=== PATIENT | male | born 1955 | race Caucasian/White ===

== ENCOUNTER 2019-04-29 05:25 | Inpatient (IN) ==
[2019-04-29] MEDS ORDERED: FAMOTIDINE 20MG/5ML IV PUSH IV STA (05:42)
[2019-04-29] MEDS ORDERED: SODIUM CHLORIDE 0.9% 1000ML 1,000 ML IV SCH (05:45)
[2019-04-29 06:05] LABS: Basophils # (auto) 0.03 K/uL (0-0.2); Basophils % (auto) 0.3 %; Eosinophils # (auto) 0.17 K/uL (0-0.5); Eosinophils % (auto) 1.7 %; Hematocrit (blood only) 42.6 % (42-52); Hemoglobin 13.9 g/dL (14.0-18.0); Immature Granulocytes # (auto) 0.03 K/uL (0.00-0.02); Immature Granulocytes % (auto) 0.3 %; Lymphocytes # (auto) 1.29 K/uL (1.2-3.4); Lymphocytes % (auto) 12.9 %; Mean Corpuscular Hemoglobin 26.7 pg (25-34); Mean Corpuscular Hgb Conc 32.6 g/dL (32-36); Mean Corpuscular Volume 81.8 fL (80-100); Mean Platelet Volume 9.8 fL (7.4-10.4); Monocytes # (auto) 1.19 K/uL (0.11-0.59); Monocytes % (auto) 11.9 %; Neutrophils # (auto) 7.29 K/uL (1.4-6.5); Neutrophils % (auto) 72.9 %; Platelet Count 228 K/uL (130-400); RDW Coefficient of Variation 15.7 % (11.5-14.5); RDW Standard Deviation 47.4 fL (36.4-46.3); Red Blood Count 5.21 M/uL (4.7-6.1)
[2019-04-29 06:14] LABS: Prothrombin Time 10.6 Seconds (9.0-12.0)
[2019-04-29 06:28] LABS: Alanine Aminotransferase 19 U/L (12-78); Albumin Level 3.4 gm/dl (3.4-5.0); Aspartate Aminotransferase 13 U/L (15-37); Blood Urea Nitrogen 18 mg/dl (7-18); Calcium 8.7 mg/dl (8.5-10.1); Carbon Dioxide 26 mmol/L (21-32); Chloride 109 mmol/L (98-107); Creatinine Clr Calc Pharmacy 118.9 ml/min; Est GFR (African American) 110.4; Est GFR (Non-African American) 95.2; Glucose 131 mg/dl (70-99); Lipase 105 U/L (73-393); Potassium 3.8 mmol/L (3.5-5.1); Sodium 140 mmol/L (136-145)
--- NOTE | 2019-04-29 06:28 | Emergency Department Note ---
History of Present Illness General Chief complaint: Rectal Bleed Stated complaint: RECTAL BLEEDING Time Seen by Provider: 04/29/19 05:34 Source: patient Mode of arrival: ambulatory Limitations: no limitations History of Present Illness Provider complaint: gi bleeding Onset (ago): day(s) 3 Location: abdomen Radiation: non-radiation Severity: moderate Pain Consistency: + colicky Quality: + aching and + dull Relieved By: + none Exacerbated By: + none Associated symptoms: + nausea/vomiting and + other (bloody BM) Treatments prior to arrival: none This is a 64-year-old male who presents tonight due to increased abdominal pain and recurrent episodes of bloody diarrhea. Patient was seen here yesterday and had labs and imaging performed. Patient was started on Augmentin and advised to follow-up closely with GI as an outpatient for a colonoscopy. Patient states his last colonoscopy was 6 years ago and was reported to him as normal. No prior GI history including gastritis, peptic ulcer disease, IBS, Crohn's disease, or ulcerative colitis. Patient states he began to not feel well Thursday night and Thursday, Thursday evening noticed some bright red blood with wiping which he attributed to hemorrhoids. States he called his PCP on Thursday who agreed that it was most likely hemorrhoidal bleeding. Patient states yesterday he had increased blood with a bowel movement that was mixed in with the stool and water itself and presented to the emergency room. Patient did have some upper abdominal pain intermittently over the last several days accompanying this. Patient states he felt reassured after his evaluation here, and went home. He was able to lay down and rest, and then awoke to a dull, aching upper abdominal pain again, and an episode of a large bloody diarrhea. Patient states there is minimal stool in the toilet bowl. Patient states the stool was burgundy in color. No clots were noted. Patient denies any accompanying dizziness, shortness of breath, chest pain, fevers or chills. Patient states he does feel bloated. Patient states he is still passing gas. Patient states he takes a baby aspirin daily, no other blood thinners. Home Medications Home Medications Medication Instructions Recorded Confirmed Type amlodipine [Norvasc] 5 mg PO DAILY 04/28/19 04/29/19 History amoxicillin-pot clavulanate 1 tab PO BID #20 tab 04/28/19 04/29/19 Rx [Augmentin] aspirin [Aspir-81] 81 mg PO DAILY 04/28/19 04/29/19 History cholecalciferol (vitamin D3) 5,000 unit PO DAILY 04/28/19 04/29/19 History [Vitamin D3] garlic 1 tab PO DAILY 04/28/19 04/29/19 History kirclewd-gvqis-vnl4-C-bandar-bor 1 tab PO BID 04/28/19 04/29/19 History [Jhlchlkqtrb-Udiwg-FRI Complex] multivitamin 1 tab PO DAILY 04/28/19 04/29/19 History omega 4-fwk-mvl-fish oil [[place]-3] 1 cap PO DAILY 04/28/19 04/29/19 History Cholestoff Med 2 tabs PO DIRECTED 04/29/19 04/29/19 History Allergies Allergy/AdvReac Type Severity Reaction Status Date / Time No Known Allergies Allergy Unverified 04/29/19 05:49 Past Med/Surg History Medical History Acute lower GI bleeding (Acute) Diverticulosis (Acute) Social History (Updated 04/29/19 @ 06:26 by Beth Flores DO) Preferred Language: Argentine Communication Ability: Effective Visual Impairment: No Limitations Hearing Ability: Normal Property Disposal Manager Required: No Beliefs That Will Affect Care: None Current Living Situation: Alone Other Information That Helps Us Care for You: No Feels Safe at Home: Yes Safety Concerns: Feels Safe At This Time Smoking Status: Current every day smoker Tobacco Type: cigarettes ; Cigarettes Per Day: 10-15 ; Do You Dip or Chew Tobacco: No ; Second Hand Exposure: No ; Tobacco Cessation Education Requested by Patient: No Hx Alcohol Use: Yes Alcohol type: beer and hard liquor Hx Substance Use: No Review of Systems See HPI for pertinent positives & negatives. and A total of 10 systems reviewed and were otherwise negative Physical Exam Vital Signs Vital Signs - 24 hr 04/29/19 05:28 Temperature 36.8 C Temperature Source Oral Pulse Rate 89 Respiratory Rate 18 Blood Pressure 139/77 Blood Pressure Mean 97 Pulse Oximetry 98 Sepsis Recent Fever Within 48 Hours No Sepsis New/Unexplained Change in Mental Status No Sepsis Action Taken by Nursing No Action Required GENERAL: alert, well appearing, well nourished, no distress, non-toxic EYE EXAM: normal conjunctiva, PERRL and EOM's grossly intact OROPHARYNX: no exudate, no erythema, lips, buccal mucosa, and tongue normal and mucous membranes are moist NECK: supple, no nuchal rigidity, no adenopathy, non-tender LUNGS: Clear to auscultation. Normal chest wall mechanics, no w/r/r HEART: no murmurs, S1 normal and S2 normal ABDOMEN: abdomen soft, non-tender, normo-active bowel sounds, no masses, no re bound or guarding, abdominal distention, dull to percussion BACK: Back is symmetrical on inspection and there is no deformity, no midline tenderness, no CVA tenderness. SKIN: no rashes and no bruising, no petechiae UPPER EXTREMITIES: upper extremities are grossly normal. FROM, nml pulses b/l. LOWER EXTREMITIES: No pitting edema. FROM, nml pulses b/l. NEURO EXAM: Normal sensorium, cranial nerves II-XII grossly intact, normal speech, no gross weakness of arms, no gross weakness of legs. Gross sensation intact. Course Course 0615: Pt still having slight upper abdominal pain. No recurrent diarrhea yet. 0706: Pt with recurrent bloody BM here. 0725: Discuss[place] with Dr. Santana, [facility] [place] for additional evaluation. Administered Medications Amlodipine Besylate (Norvasc) 5 mg PO DAILY [facility] Stop: 05/29/19 08:59 Last Admin: 04/30/19 08:24 Dose: 5 mg Documented by: [id number] Admin: 04/29/19 12:17 Dose: 5 mg Documented by: [id number] Piperacillin Sod/Tazobactam (Sod 3.375 gm/ Dextrose) 115 mls @ 28.75 mls/hr IV Q8H [facility]; Protocol Stop: 05/10/19 17:59 Last Infusion: 04/30/19 19:14 Dose: 28.8 mls/hr Documented by: [id number] Infusion: 04/30/19 18:34 Dose: 0 mls/hr Documented by: [id number] Admin: 04/30/19 18:25 Dose: 28.8 mls/hr Documented by: [id number] Miscellaneous (Remove Nicoderm Patch) 1 ea N/A DAILY@0859 [facility] Stop: 05/30/19 08:58 Last Admin: 04/30/19 08:24 Dose: 1 ea Documented by: [id number] Nicotine (Nicoderm Cq) 14 mg TD QAM PRN PRN Reason: smoking Stop: 05/29/19 09:40 Last Admin: 04/30/19 18:24 Dose: 14 mg Documented by: [id number] Admin: 04/29/19 17:18 Dose: 14 mg Documented by: [id number] Pantoprazole Sodium (Protonix) 40 mg PO BID SARY Stop: 05/30/19 12:44 Last Admin: 04/30/19 13:26 Dose: 40 mg Documented by: [id number] Discontinued Medications Amoxicillin/Clavulanate Potassium (Augmentin 875mg) 1 tab PO BID SARY Stop: 05/09/19 09:59 Last Admin: 04/30/19 08:24 Dose: 1 tab Documented by: [id number] Admin: 04/29/19 20:21 Dose: 1 tab Documented by: [id number] Admin: 04/29/19 10:39 Dose: 1 tab Documented by: [id number] Bisacodyl (Dulcolax) 5 mg PO NOW ONE Stop: 04/30/19 03:06 Last Admin: 04/30/19 03:14 Dose: 5 mg Documented by: [id number] Famotidine (Pepcid 20mg Iv Push) 20 mg IV ONE STA Stop: 04/29/19 05:43 Last Admin: 04/29/19 06:01 Dose: 20 mg Documented by: [id number] Sodium Chloride (Nss 1000ml) 1,000 mls @ 80 mls/hr IV .[id number] SARY Stop: 05/29/19 05:44 Last Infusion: 04/29/19 09:05 Dose: 0 mls/hr Documented by: [id number] Infusion: 04/29/19 08:35 Dose: 80 mls/hr Documented by: [id number] Admin: 04/29/19 06:01 Dose: 80 mls/hr Documented by: [id number] Acetaminophen (Ofirmev) 1,000 mg in 100 mls @ 400 mls/hr IV NOW STA Stop: 04/29/19 06:51 Last Infusion: 04/29/19 06:57 Dose: 0 mls/hr Documented by: [id number] Admin: 04/29/19 06:41 Dose: 400 mls/hr Documented by: [id number] Piperacillin Sod/Tazobactam (Sod 3.375 gm/ Dextrose) 115 mls @ 230 mls/hr IV 1300 ONE; Protocol Stop: 04/30/19 13:29 Last Infusion: 04/30/19 13:27 Dose: 0 mls/hr Documented by: [id number] Admin: 04/30/19 12:57 Dose: 230 mls/hr Documented by: [id number] Medical Decision Making Differential Diagnosis Differential diagnosis includes etiologies such as diverticulosis, AVM, coagulopathy, colitis, inflammatory bowel disease, malignancy, Rina-Jovel tear, esophagitis, peptic ulcer disease, variceal bleed, gastritis, epistaxis, fissure, hemorrhoids, as well as others were entertained. Medical Records Attestation: I reviewed the patient's medical records. Home Medications Current Medication List: was personally reviewed by me Laboratory Data Attestation: I reviewed the patient's lab results. Result diagrams: 04/30/19 18:09 04/30/19 06:00 Lab Results 04/29/19 04/29/19 04/29/19 Range/Units 05:56 05:56 05:56 WBC 10.00 (4.8-10.8) K/uL RBC 5.21 (4.7-6.1) M/uL Hgb 13.9 L (14.0-18.0) g/dL Hct 42.6 (42-52) % MCV 81.8 (80-100) fL MCH 26.7 (25-34) pg MCHC 32.6 (32-36) g/dL RDW Std Deviation 47.4 H (36.4-46.3) fL RDW Coeff of Brent 15.7 H (11.5-14.5) % Plt Count 228 (130-400) K/uL MPV 9.8 (7.4-10.4) fL Immature Gran % (Auto) 0.3 % Neut % (Auto) 72.9 % Lymph % (Auto) 12.9 % Morrow % (Auto) 11.9 % Eos % (Auto) 1.7 % Baso % (Auto) 0.3 % Immature Gran # (Auto) 0.03 H (0.00-0.02) K/uL Neut # (Auto) 7.29 H (1.4-6.5) K/uL Lymph # (Auto) 1.29 (1.2-3.4) K/uL Morrow # (Auto) 1.19 H (0.11-0.59) K/uL Eos # (Auto) 0.17 (0-0.5) K/uL Baso # (Auto) 0.03 (0-0.2) K/uL PT 10.6 (9.0-12.0) Seconds INR 1.0 (0.9-1.1) Sodium 140 (136-145) mmol/L Potassium 3.8 (3.5-5.1) mmol/L Chloride 109 H (98-107) mmol/L Carbon Dioxide 26 (21-32) mmol/L Anion Gap 5.0 (3-11) BUN 18 (7-18) mg/dl Creatinine 0.77 (0.6-1.4) mg/dl Est Cr Clr Drug Dosing 118.9 ml/min Est GFR ( Amer) 110.4 Est GFR (Non-Af Amer) 95.2 BUN/Creatinine Ratio 23.0 H (10-20) Glucose 131 H (70-99) mg/dl Lactate (0.4-2.0) mmol/L Calcium 8.7 (8.5-10.1) mg/dl Total Bilirubin 0.6 (0.2-1) mg/dl AST 13 L (15-37) U/L ALT 19 (12-78) U/L Alkaline Phosphatase 67 (45-117) U/L Troponin I < 0.015 (0-0.045) ng/ml Total Protein 8.2 (6.4-8.2) gm/dl Albumin 3.4 (3.4-5.0) gm/dl Globulin 4.8 H (2.5-4.0) gm/dl Albumin/Globulin Ratio 0.7 L (0.9-2) Lipase 105 (73-393) U/L Hepatitis C Ab Screen (Neg) 04/29/19 04/29/19 Range/Units 05:56 05:58 WBC (4.8-10.8) K/uL RBC (4.7-6.1) M/uL Hgb (14.0-18.0) g/dL Hct (42-52) % MCV (80-100) fL MCH (25-34) pg MCHC (32-36) g/dL RDW Std Deviation (36.4-46.3) fL RDW Coeff of Brent (11.5-14.5) % Plt Count (130-400) K/uL MPV (7.4-10.4) fL Immature Gran % (Auto) % Neut % (Auto) % Lymph % (Auto) % Morrow % (Auto) % Eos % (Auto) % Baso % (Auto) % Immature Gran # (Auto) (0.00-0.02) K/uL Neut # (Auto) (1.4-6.5) K/uL Lymph # (Auto) (1.2-3.4) K/uL Morrow # (Auto) (0.11-0.59) K/uL Eos # (Auto) (0-0.5) K/uL Baso # (Auto) (0-0.2) K/uL PT (9.0-12.0) Seconds INR (0.9-1.1) Sodium (136-145) mmol/L Potassium (3.5-5.1) mmol/L Chloride (98-107) mmol/L Carbon Dioxide (21-32) mmol/L Anion Gap (3-11) BUN (7-18) mg/dl Creatinine (0.6-1.4) mg/dl Est Cr Clr Drug Dosing ml/min Est GFR ( Amer) Est GFR (Non-Af Amer) BUN/Creatinine Ratio (10-20) Glucose (70-99) mg/dl Lactate 0.8 (0.4-2.0) mmol/L Calcium (8.5-10.1) mg/dl Total Bilirubin (0.2-1) mg/dl AST (15-37) U/L ALT (12-78) U/L Alkaline Phosphatase (45-117) U/L Troponin I (0-0.045) ng/ml Total Protein (6.4-8.2) gm/dl Albumin (3.4-5.0) gm/dl Globulin (2.5-4.0) gm/dl Albumin/Globulin Ratio (0.9-2) Lipase (73-393) U/L Hepatitis C Ab Screen Neg (Neg) Blood Pressure Blood Pressure Findings: Elevated blood pressure Blood Pressure Disposition: further management by hospitalist MDM Narrative Pt here well appearing despite complaints. VS stable throughout. H/H stable. I did not feel pt warranted repeat CT given one performed within 24 hrs. Given recurrent/worsening bleeding and abdominal discomfort along with CT findings from yesterday, I felt pt would benefit from more urgent GI evaluation and close monitoring. Pt aware of all results and in agreement with plan. Case discussed with hospitalist for additional mgmt. Pt did have recurrent bloody BM here and this was sent to the lab for formal hemacult testing and culture. I do not suspect ischemic colitis, infectious diarrhea or colitis, sbo, perf. I feel more like lower GI bleed and do not suspect brisk upper GI bleed. Impression & Plan Acute GI bleeding, Diverticulosis, Abdominal pain, Diarrhea Discharge Plan Visit Data *Final* Discharge Date/Time: 04/29/19 08:51 Chief Complaint: Rectal Bleed Stated Complaint: RECTAL BLEEDING ED Provider: Beth Flores Discharge Problem: Acute GI bleeding, Diverticulosis, Abdominal pain, Diarrhea Patient Disposition: Admitted As Inpatient Condition: Good Discharge Instructions Interventions: ED Discharge Assessment Last Done: 04/29/19 08:51 Discharge Problem: Abdominal pain Qualifiers: Abdominal location: left upper quadrant Qualified Code(s): R10.12 - Left upper quadrant pain Diarrhea Qualifiers: Diarrhea type: unspecified type Qualified Code(s): R19.7 - Diarrhea, unspecified
[2019-04-29 06:33] LABS: Albumin Globulin Ratio 0.7 (0.9-2); Alkaline Phosphatase 67 U/L (45-117); Bilirubin,Total 0.6 mg/dl (0.2-1); Globulin 4.8 gm/dl (2.5-4.0); Total Protein 8.2 gm/dl (6.4-8.2); Troponin I < 0.015 ng/ml (0-0.045)
[2019-04-29] MEDS ORDERED: ACETAMINOPHEN 1,000 MG/100 ML VIAL IV STA (06:37)
[2019-04-29] MEDS ORDERED: ACETAMINOPHEN 325 MG TAB PO PRN (08:03)
[2019-04-29] MEDS ORDERED: ONDANSETRON INJ 2 MG/ML 2 ML VIAL IV PRN (08:03)
--- NOTE | 2019-04-29 08:03 | History & Physical Report ---
Date of Service April 29, 2019 Assessment & Plan (1) Acute GI bleeding: - Admit to med surg with tele - NPO for now - GI consult for colonoscopy- pt had colonoscopy in 2013, reports all findings were normal at that time, thinks that [facility] was [facility], he has followed with Dr. Sharif as his PCP believes he referred him at that time there. [facility] or through [facility]. - Hgb stable at 13 currently, H&H q6H today, then with am labs tomorrow - Continue Augmentin which was started yesterday, patient has taken 1 dose so far for possible diverticulitis - CT ABD reviewed from 04/28/2019 showing extensive colonic diverticulosis without definitive evidence of acute diverticulitis. Mild wall thickening within the proximal to mid sigmoid colon without significant pericolonic inflammation may represent chronic hypertrophy of the muscularis propria secondary to diverticular disease A focal area of mild luminal narrowing of the proximal sigmoid which may be secondary to partial distention. Correlation with a nonemergent colonoscopy however is recommended to exclude an underlying mucosal lesion. Moderate fecal retention with multiple stool-filled loops of ileum suggestive of decreased small bowel transit. No bowel obstruction, pneumatosis or pneumoperitoneum. Ectasia of the distal infrarenal abdominal aorta, 2.8 x 2.4 cm. (2) HTN (hypertension): - Continue amlodipine for now, BP well controlled. If changes in hgb or BP consider holding - Hold ASA in setting of GI bleed (3) Alcohol use: -Patient admits to heavy alcohol consumption 2-3 times per week, 10 beers and a few shots of liquor at least twice per week, as well as drinking beers while doing activities like yard work -Cessation was encouraged -Last drink was on Thursday, monitor for any signs of withdrawal, patient denies any feelings of sweats, chills, shakes. (4) Tobacco dependence: -Smokes 1/2-1 PPD routinely, cessation was encouraged to bedside -Nicotine patch ordered as needed (5) DVT prophylaxis: -Teds, no chemical DVT in the setting of GI bleed CODE STATUS full code Disposition: Patient from home, likely to remain in the hospital x1 to 2 days for stabilization, GI evaluation, possible colonoscopy, monitoring of hemoglobin. History of Present Illness Primary Care Provider: Dalton Sharif MD This is a 64 yo M with PMhx of HTN and GI bleed who presents with recent onset of bloody bowel movements. Patient notes that last Thursday he developed an left upper quadrant abdominal pain at approximately midnight which then turned into a dull achy pain and eventually subsided on Thursday. After that he noticed bowel movements with small amount of blood on toilet paper. He felt that he was somewhat constipated on Thursday, strained during bowel movement, and then noticed more blood on toilet paper. He has had intermittent episodes of constipation in the past. After discussion with his PCP it was thought that he was having hemorrhoids. On he had a large bowel movement with bright red blood, with some in the toilet bowl and therefore called his PCP, he was referred to the ER, where he presented yesterday and was found that he had extensive diverticulosis on CT scan and was started on Augmentin as well as a stool softener for possible diverticulitis. The patient went home and then continue to have increased large bloody bowel movements, bright red, + clots, increased frequency of BMs, and therefore re-presented back to the ER early this morning. He has had multiple large bloody BMs since being here in the ER. He denies any lightheadedness or dizziness or further abdominal pain, no nausea or vomiting. He last took his amlodipine at 6-7pm last night, but has not taken any other of his medications. Other past medical history includes chronic tobacco use, smokes 1/2-1 PPD x 40+ years, patient also admits to drinking alcohol 2-3 times per week, 10 beers and "a few shots". He denies heavy use of NSAIDs but has used ibuprofen routinely for back pain in the past; last time he took ibuprofen was 400 mg about 10 days ago. Allergies Allergy/AdvReac Type Severity Reaction Status Date / Time No Known Allergies Allergy Unverified 04/29/19 05:49 Home Medications Home Medications Medication Instructions Recorded Confirmed Type amlodipine [Norvasc] 5 mg PO DAILY 04/28/19 04/29/19 History amoxicillin-pot clavulanate 1 tab PO BID #20 tab 04/28/19 04/29/19 Rx [Augmentin] aspirin [Aspir-81] 81 mg PO DAILY 04/28/19 04/29/19 History cholecalciferol (vitamin D3) 5,000 unit PO DAILY 04/28/19 04/29/19 History [Vitamin D3] garlic 1 tab PO DAILY 04/28/19 04/29/19 History ehspwcbh-pxgkk-hvk1-C-bandar-bor 1 tab PO BID 04/28/19 04/29/19 History [Azkenxuiedk-Vozca-UOS Complex] multivitamin 1 tab PO DAILY 04/28/19 04/29/19 History omega 9-txz-ctd-fish oil [[place]-3] 1 cap PO DAILY 04/28/19 04/29/19 History Cholestoff Med 2 tabs PO DIRECTED 04/29/19 04/29/19 History Past Med/Surg History Medical History Acute lower GI bleeding (Acute) Diverticulosis (Acute) Social History (Updated 04/29/19 @ 06:26 by Beth Flores DO) Preferred Language: Bol[place]ian Communication Ability: Effective Visual Impairment: No Limitations Hearing Ability: Normal Store Detective Required: No Beliefs That Will Affect Care: None Current Living Situation: Alone Other Information That Helps Us Care for You: No Feels Safe at Home: Yes Safety Concerns: Feels Safe At This Time Smoking Status: Current every day smoker Tobacco Type: cigarettes ; Cigarettes Per Day: 10-15 ; Do You Dip or Chew Tobacco: No ; Second Hand Exposure: No ; Tobacco Cessation Education Requested by Patient: No Hx Alcohol Use: Yes Alcohol type: beer and hard liquor Hx Substance Use: No Review of Systems Review of Systems: Constitutional: No fever, sweats or chills Eyes: No diplopia, no worsening or blurred vision ENT: normal hearing, no trouble swallowing Respiratory: No cough, sputum, dyspnea at rest or on exertion Cardiovascular: No chest pain, tightness or palpitations Abdomen: As per HPI Musculoskeletal: No joint pain, calf pain, swelling Neurologic: No weakness, numbness/tingling, or balance problems Psychiatric: No anxiety or depression Skin: No rash or itch Physical Exam Physical Exam: General: awake, alert, no apparent distress, yellowing of facial hair around the mouth from smoking Head: Normocephalic, atraumatic ENT: PERRL, EOMI, no pharyngeal exudate, mucous membranes moist Chest: Clear to auscultation, on room air, no adventitious breath sounds Cardiac: Regular rate and rhythm, no murmur, no JVD, normal peripheral pulses, good capillary refill Abdominal: NABS x 4 quadrants, soft, nondistended, nontender to palpation, no rebound, guarding Extremities: Normal inspection, no peripheral edema or erythema, calfs nontender to palpation Psych: Normal mood and affect Neuro: AAO x 3, strength intact bilaterally and rated 5/5, no motor deficits, speech is clear, no peripheral sensory deficits Skin: no rash or erythema Results & Data Vital Signs (Past 12 Hours) Vital Signs Temp Pulse Resp BP Pulse Ox 04/29/19 05:28 36.8 C 89 18 139/77 98 Supervising Physician Co-Signing Physician Notes Patient seen and examined with Nissa VALENTINO. I agree with her exam findings, review of systems, assessment and plan. I personally reviewed the lab work and imaging as well. patient feeling well, actually feels better after he had the large BM this morning he says that the bloody BM was NOT painful he has not had fever or chills prior to some bleeding yesterday, he had never experienced significant GI bleeding he had a colonoscopy 6 years ago that he believes was normal - Acute GI bleed, likely lower GI bleed given the findings on CT of colon thickening and the painless, bright red blood would think diverticular bleed or colitis? will allow clear liquids today, no red dye, would not anticipate urgent colonoscopy as colon would likely be bloody, difficult to determine source consult GI for further recommendations BP is stable, Hb is stable at 13.9 repeat labs in the morning PG Care Time/CCT Total # of Minutes Spent Total Time Spent with Patient: Total time spent is greater than 50% in coordination of care (as documented) at patient's floor/unit and/or counseling patient: Coding Level of Care Code 66550 Initial Inpt Care Lvl 3 Diagnoses Acute GI bleeding K92.2 HTN (hypertension) I10 Alcohol use Z72.89 Tobacco dependence F17.200 DVT prophylaxis Z29.9
--- NOTE | 2019-04-29 09:56 | Gastrointestinal Consultation ---
Date of Consultation April 29, 2019 Assessment & Plan (1) Acute GI bleedin64 year old male with history of HTN admitted through the ED w/ abdominal cramping, constipation now w/ rectal bleeding, maroon colored and bright red w/ associated clots. He is hemodynamically stable w/ BP 164/89 w/ pulse 65. He is afebrile without leukocytosis. HGB stable overnight at 13.9 w/o BUN elevation. CT w/ diverticulosis, mild wall thickening of the sigmoid colon w/o pericolonic inflammation which could be secondary to chronic diverticular disease w/ associated luminal narrowing of the sigmoid colon. Colonoscopy in 2013 w/ diverticular disease otherwise negative. DDX: ischemic colitis, diverticular bleed, hemorrhoidal bleed, infectious colitis - Check stool culture, C.diff - NPO for bowel rest - Agree w/ IVF for hydration - Can convert PO augmentin to IV coverage if stool studies are negative - Analgesia PRN - Trend H&H - Monitor and document all GI output - Transfusion PRN per facility guidelines per primary service - No current indication for inpatient colonoscopy but this should be arrange if bleeding persists during his admission. If not completed in house he will need an OP colonoscopy in the next 4-6 weeks Present on Admission?: Yes Supervising Physician Co-Signing Physician Notes I discussed this case with Dr. Santana extensively as well as with our midlevel provider Makeda Milligan. Given the healthcare climates right now, suggestions of virtual consults are encouraged given exposure risks. pat adm with pain followed by painless rectal bleeding without hemodynamic compromise. Hb stable. Diff DX: Ischemic colitis Diverticular disease (know jolley diverticolosis) infectious etiology. Recs: Hb daily Supportive care If has evidence of hemodynamic changes then call GI operations intelligence superintendent Stool Cx IV abx x 24 hrs Plan for outpt colon in 2-3 wks barring normal stool cx and assymptomatic period. History of Present Illness Reason for Consultation: abd pain, rectal bleeding Requesting Physician: Max Attending Physician: Angel Santana DO History of Present Illness In efforts to reduce [id number] interaction initial consultation is a chart review, I will discuss the case with my attending, Dr. Jarvis. 64 year old male with past medical history significant for HTN, ongoing tobacco and alcohol use/abuse who was admitted through the ED for evaluation of abdominal cramping, rectal bleeding. GI was asked to evaluate for his symptoms. This chart was reviewed. Per record review, pt noted onset of abdominal pain Thursday/Thursday which was cramping in nature. Left sided pain. Intermittent. Associated w/ constipation and use of stool softener/laxative. W/ his bowel movement he noted rectal bleeding. Bright red to start. Progressed to maroon colored w/ some clots. Initially saw PCP who was concerned about hemorrhoidal bleeding but later presented to the ED for evaluation as this persisted. Labs at that time were unremarkable, CT showed evidence of chronic diverticular disease but no acute findings. He was discharged from ED home on PO Augmentin but later returned with persistent symptoms and subsequently admitted He is hemodynamically stable w/ BP 164/89 w/ pulse 65. He is afebrile without leukocytosis. His HGB this AM is 13.9. Yesterday value was 14. There is no BUN elevation. CTAP w/ diverticulosis, mild wall thickening of the sigmoid colon w/o pericolonic inflammation which could be secondary to chronic diverticular disease w/ associated luminal narrowing of the sigmoid colon CTAP 2020: Extensive colonic diverticulosis without definite evidence of acute diverticulitis. Mild wall thickening within the proximal to mid sigmoid colon without significant pericolonic inflammation may represent chronic hypertrophy of the muscularis propria secondary to diverticular disease. Additionally, there is a focal area of mild luminal narrowing of the proximal sigmoid which may be secondary to partial distention. Correlation with a nonemergent colonoscopy however is recommended to exclude an underlying mucosal lesion. Moderate fecal retention with multiple stool-filled loops of ileum suggestive of decreased small bowel transit. No bowel obstruction, pneumatosis or pneumoperitoneum. Ectasia of the distal infrarenal abdominal aorta, 2.8 x 2.4 cm. EGD: none Colonoscopy 2012 w/ Dr. Armas: The examined portion of the ileum was normal. Jolley-colonic diverticulosis, most pronounced in the left colon. The distal rectum and anal verge are normal on retroflexion view Allergies Allergy/AdvReac Type Severity Reaction Status Date / Time No Known Allergies Allergy Unverified 04/29/19 05:49 Home Medications Home Medications Medication Instructions Recorded Confirmed Type amlodipine [Norvasc] 5 mg PO DAILY 04/28/19 04/29/19 History amoxicillin-pot clavulanate 1 tab PO BID #20 tab 04/28/19 04/29/19 Rx [Augmentin] aspirin [Aspir-81] 81 mg PO DAILY 04/28/19 04/29/19 History cholecalciferol (vitamin D3) 5,000 unit PO DAILY 04/28/19 04/29/19 History [Vitamin D3] garlic 1 tab PO DAILY 04/28/19 04/29/19 History kmfberms-omftz-nug8-C-bandar-bor 1 tab PO BID 04/28/19 04/29/19 History [Pyvkrkxsxil-Ygkuw-HEB Complex] multivitamin 1 tab PO DAILY 04/28/19 04/29/19 History omega 5-izi-qlm-fish oil [[place]-3] 1 cap PO DAILY 04/28/19 04/29/19 History Cholestoff Med 2 tabs PO DIRECTED 04/29/19 04/29/19 History Patient History Medical History Acute lower GI bleeding (Acute) Diverticulosis (Acute) Social History (Updated 04/29/19 @ 06:26 by Beth Flores DO) Preferred Language: Hebrew Communication Ability: Effective Visual Impairment: No Limitations Hearing Ability: Normal Creosoting Engineer Required: No Beliefs That Will Affect Care: None Current Living Situation: Alone Other Information That Helps Us Care for You: No Feels Safe at Home: Yes Safety Concerns: Feels Safe At This Time Smoking Status: Current every day smoker Tobacco Type: cigarettes ; Cigarettes Per Day: 10-15 ; Do You Dip or Chew Tobacco: No ; Second Hand Exposure: No ; Tobacco Cessation Education Requested by Patient: No Hx Alcohol Use: Yes Alcohol type: beer and hard liquor Hx Substance Use: No Results & Data ([facility]) Vital Signs (Past 12 Hours) Vital Signs Temp Pulse Pulse Resp BP BP Pulse Ox 04/29/19 09:45 65 04/29/19 09:41 36.7 C 62 20 164/89 H 99 04/29/19 08:51 67 18 135/79 98 04/29/19 07:30 61 18 131/87 98 04/29/19 05:28 36.8 C 89 18 139/77 98 Laboratory Results 04/29/19 04/29/19 04/29/19 Range/Units 05:58 05:56 05:56 WBC (4.8-10.8) K/uL RBC (4.7-6.1) M/uL Hgb (14.0-18.0) g/dL Hct (42-52) % MCV (80-100) fL MCH (25-34) pg MCHC (32-36) g/dL RDW Std Deviation (36.4-46.3) fL RDW Coeff of Brent (11.5-14.5) % Plt Count (130-400) K/uL MPV (7.4-10.4) fL Immature Gran % (Auto) % Neut % (Auto) % Lymph % (Auto) % [place] % (Auto) % Eos % (Auto) % Baso % (Auto) % Immature Gran # (Auto) (0.00-0.02) K/uL Neut # (Auto) (1.4-6.5) K/uL Lymph # (Auto) (1.2-3.4) K/uL [place] # (Auto) (0.11-0.59) K/uL Eos # (Auto) (0-0.5) K/uL Baso # (Auto) (0-0.2) K/uL PT (9.0-12.0) Seconds INR (0.9-1.1) Sodium 140 (136-145) mmol/L Potassium 3.8 (3.5-5.1) mmol/L Chloride 109 H (98-107) mmol/L Carbon Dioxide 26 (21-32) mmol/L Anion Gap 5.0 (3-11) BUN 18 (7-18) mg/dl Creatinine 0.77 (0.6-1.4) mg/dl Est Cr Clr Drug Dosing 118.9 ml/min Est GFR ( Amer) 110.4 Est GFR (Non-Af Amer) 95.2 BUN/Creatinine Ratio 23.0 H (10-20) Glucose 131 H (70-99) mg/dl Lactate 0.8 (0.4-2.0) mmol/L Calcium 8.7 (8.5-10.1) mg/dl Total Bilirubin 0.6 (0.2-1) mg/dl AST 13 L (15-37) U/L ALT 19 (12-78) U/L Alkaline Phosphatase 67 (45-117) U/L Troponin I < 0.015 (0-0.045) ng/ml Total Protein 8.2 (6.4-8.2) gm/dl Albumin 3.4 (3.4-5.0) gm/dl Globulin 4.8 H (2.5-4.0) gm/dl Albumin/Globulin Ratio 0.7 L (0.9-2) Lipase 105 (73-393) U/L Hepatitis C Ab Screen Neg (Neg) 04/29/19 04/29/19 Range/Units 05:56 05:56 WBC 10.00 (4.8-10.8) K/uL RBC 5.21 (4.7-6.1) M/uL Hgb 13.9 L (14.0-18.0) g/dL Hct 42.6 (42-52) % MCV 81.8 (80-100) fL MCH 26.7 (25-34) pg MCHC 32.6 (32-36) g/dL RDW Std Deviation 47.4 H (36.4-46.3) fL RDW Coeff of Brent 15.7 H (11.5-14.5) % Plt Count 228 (130-400) K/uL MPV 9.8 (7.4-10.4) fL Immature Gran % (Auto) 0.3 % Neut % (Auto) 72.9 % Lymph % (Auto) 12.9 % [place] % (Auto) 11.9 % Eos % (Auto) 1.7 % Baso % (Auto) 0.3 % Immature Gran # (Auto) 0.03 H (0.00-0.02) K/uL Neut # (Auto) 7.29 H (1.4-6.5) K/uL Lymph # (Auto) 1.29 (1.2-3.4) K/uL [place] # (Auto) 1.19 H (0.11-0.59) K/uL Eos # (Auto) 0.17 (0-0.5) K/uL Baso # (Auto) 0.03 (0-0.2) K/uL PT 10.6 (9.0-12.0) Seconds INR 1.0 (0.9-1.1) Sodium (136-145) mmol/L Potassium (3.5-5.1) mmol/L Chloride (98-107) mmol/L Carbon Dioxide (21-32) mmol/L Anion Gap (3-11) BUN (7-18) mg/dl Creatinine (0.6-1.4) mg/dl Est Cr Clr Drug Dosing ml/min Est GFR ( Amer) Est GFR (Non-Af Amer) BUN/Creatinine Ratio (10-20) Glucose (70-99) mg/dl Lactate (0.4-2.0) mmol/L Calcium (8.5-10.1) mg/dl Total Bilirubin (0.2-1) mg/dl AST (15-37) U/L ALT (12-78) U/L Alkaline Phosphatase (45-117) U/L Troponin I (0-0.045) ng/ml Total Protein (6.4-8.2) gm/dl Albumin (3.4-5.0) gm/dl Globulin (2.5-4.0) gm/dl Albumin/Globulin Ratio (0.9-2) Lipase (73-393) U/L Hepatitis C Ab Screen (Neg)
[2019-04-29] MEDS: AMOXICILLIN/CLAVULANATE 875 MG TAB PO SCH ×2 (10:39→20:21)
[2019-04-29 12:02] LABS: Hematocrit (blood only) 39.4 % (42-52); Hemoglobin 12.7 g/dL (14.0-18.0)
[2019-04-29] MEDS: AMLODIPINE BESYLATE 5 MG TAB PO SCH (12:17)
[2019-04-29] MEDS: NICOTINE 14 MG/24 HR PATCH TD PRN (17:18)
[2019-04-29 17:56] LABS: Hematocrit (blood only) 37.6 % (42-52); Hemoglobin 12.1 g/dL (14.0-18.0)
[2019-04-30] MEDS ORDERED: bisacodyL 5 MG TABEC PO ONE (03:05)
[2019-04-30 06:27] LABS: Hematocrit (blood only) 37.1 % (42-52); Hemoglobin 11.9 g/dL (14.0-18.0); Mean Corpuscular Hgb Conc 32.1 g/dL (32-36); Mean Corpuscular Volume 81.2 fL (80-100); Mean Platelet Volume 9.6 fL (7.4-10.4); Platelet Count 194 K/uL (130-400); RDW Coefficient of Variation 15.6 % (11.5-14.5); RDW Standard Deviation 46.2 fL (36.4-46.3); Red Blood Count 4.57 M/uL (4.7-6.1); White Blood Count 6.72 K/uL (4.8-10.8)
[2019-04-30 07:10] LABS: Albumin Globulin Ratio 0.7 (0.9-2); Albumin Level 2.9 gm/dl (3.4-5.0); BUN Creatinine Ratio 12.5 (10-20); Bilirubin,Total 0.7 mg/dl (0.2-1); Calcium 8.7 mg/dl (8.5-10.1); Creatinine Clr Calc Pharmacy 120.3 ml/min; Est GFR (African American) 111.6; Est GFR (Non-African American) 96.3; Globulin 4.1 gm/dl (2.5-4.0); Potassium 3.9 mmol/L (3.5-5.1)
[2019-04-30 07:43] LABS: Estimated Average Glucose 117 mg/dl; Hemoglobin A1C 5.7 % (4.5-5.6)
[2019-04-30] MEDS: AMOXICILLIN/CLAVULANATE 875 MG TAB PO SCH (08:24)
[2019-04-30] MEDS: AMLODIPINE BESYLATE 5 MG TAB PO SCH (08:24)
[2019-04-30] MEDS ORDERED: PIPERACILL/TAZOBAC CONSULT ACTIVE PRN (11:38)
--- NOTE | 2019-04-30 12:41 | Hospitalist Progress Note ---
Date of Service April 30, 2019 Assessment & Plan (1) Acute GI bleeding: continues to have grossly bloody BM, two this morning, small to moderate volume no pain associated with them Hb down to 11.9 from 13.9, BP stable will start on Protonix in case this is upper GI bleed favoring a lower GI bleed given the findings on CT below will change to Zosyn IV C diff negative, stool cultures pending d/w Dr. Jarvis, no emergent need for endoscopy, likely will get scoped Thursday change to medical floor status, no need for tele monitor - CT ABD reviewed from 04/28/2019 showing extensive colonic diverticulosis without definitive evidence of acute diverticulitis. Mild wall thickening within the proximal to mid sigmoid colon without significant pericolonic inflammation may represent chronic hypertrophy of the muscularis propria secondary to diverticular disease A focal area of mild luminal narrowing of the proximal sigmoid which may be secondary to partial distention. Correlation with a nonemergent colonoscopy however is recommended to exclude an underlying mucosal lesion. Moderate fecal retention with multiple stool-filled loops of ileum suggestive of decreased small bowel transit. No bowel obstruction, pneumatosis or pneumoperitoneum. (2) Acute blood loss anemia: Hb down to 11.9 from 13.9 will repeat this evening and tomorrow morning BP stable, no indications for transfusion (3) HTN (hypertension): - Continue amlodipine for now, BP in 140/80 range - Hold ASA in setting of GI bleed (4) Alcohol use: -Patient admits to heavy alcohol consumption 2-3 times per week, 10 beers and a few shots of liquor at least twice per week, as well as drinking beers while doing activities like yard work -Cessation was encouraged -Last drink was on Thursday, monitor for any signs of withdrawal, patient denies any feelings of sweats, chills, shakes. (5) Tobacco dependence: -Smokes 1/2-1 PPD routinely, cessation was encouraged to bedside -Nicotine patch ordered as needed (6) DVT prophylaxis: -Teds, no chemical DVT in the setting of GI bleed CODE STATUS full code Disposition: Patient from home, likely to remain in the hospital x1 to 2 days for stabilization, GI evaluation, possible colonoscopy, monitoring of hemoglobin. Admission and Anticipated Discharge Date Admission Date: April 29, 2019 Subjective patient still with some grossly bloody BM, had one early in the morning and then again late morning having some intermittent left upper quadrant pain, nothing severe Hb down to 11.9 from 13.9, BP stable d/w Dr. Jarvis, his C diff is negative, stool culture pending will change antibiotics to IV tentatively plan for endoscopy on Thursday I updated the patient, he understands that he will be here the weekend Review of Systems Review of Systems: All systems reviewed & are unremarkable except as noted in HPI & below Constitutional: no fever, no chills, no sweats, no fatigue and no weakness Respiratory: no cough and no dyspnea Cardiovascular: no chest pain, no palpitations and no edema Gastrointestinal: + abdominal pain (LUQ, intermittent, mild), + diarrhea/loose stools and + blood in stools (grossly bloody BM); no nausea, no vomiting and no constipation Physical Exam Constitutional: WD/WN, vitals as above Eyes: PERRL, conjunctivae normal, anicteric sclerae ENMT: external ear and nose normal, oropharynx normal Neck: trachea midline, no thyromegaly Respiratory: normal respiratory effort, lungs clear to auscultation Cardiovascular: RRR, no murmur, no edema Gastrointestinal (Abdomen): Inspection/Auscultation: abdomen normal to inspection and normal bowel sounds; abdomen not distended Percussion/Palpation: + abdomen tender (minimal tenderness LUQ) and abdomen soft; no guarding and abdomen not rigid Musculoskeletal: no cyanosis or clubbing, extremities motor strength 5/5 Skin: no rashes, warm and dry Neurologic: patellar DTR's 2+ bilat, sensation intact and PERRL, EOMI, accommodation nl, no face palsy, no dysarthria Psychiatric: A+Ox3, euthymic affect Lymphatic: no cervical or axillary lymphadenopathy Results & Data ([facility]) Vital Signs (Past 12 Hours) Vital Signs Temp Pulse Pulse Resp BP Pulse Ox 04/30/19 11:39 36.5 C 67 18 149/81 H 93 04/30/19 08:47 69 04/30/19 07:39 36.4 C L 61 16 142/87 H 99 04/30/19 06:20 37.4 C 86 18 121/77 95 04/30/19 02:56 36.7 C 58 L 18 137/80 95 Laboratory Results Laboratory Results - last 24 hr 04/29/19 04/30/1920 17:48 06:00 06:00 WBC 6.72 RBC 4.57 L Hgb 12.1 L 11.9 L Hct 37.6 L 37.1 L MCV 81.2 MCH 26.0 MCHC 32.1 RDW Std Deviation 46.2 RDW Coeff of Brent 15.6 H Plt Count 194 MPV 9.6 Sodium 140 Potassium 3.9 Chloride 110 H Carbon Dioxide 27 Anion Gap 3.0 BUN 9 D Creatinine 0.75 Est Cr Clr Drug Dosing 120.3 Est GFR ( Amer) 111.6 Est GFR (Non-Af Amer) 96.3 BUN/Creatinine Ratio 12.5 Glucose 107 H Estimat Average Glucose Hemoglobin A1c Calcium 8.7 Total Bilirubin 0.7 AST 10 L ALT 15 Alkaline Phosphatase 56 Total Protein 7.0 Albumin 2.9 L Globulin 4.1 H Albumin/Globulin Ratio 0.7 L Stl C. diff Tox B Gene 04/30/19 04/30/19 06:00 07:45 WBC RBC Hgb Hct MCV MCH MCHC RDW Std Deviation RDW Coeff of Brent Plt Count MPV Sodium Potassium Chloride Carbon Dioxide Anion Gap BUN Creatinine Est Cr Clr Drug Dosing Est GFR ( Amer) Est GFR (Non-Af Amer) BUN/Creatinine Ratio Glucose Estimat Average Glucose 117 Hemoglobin A1c 5.7 H Calcium Total Bilirubin AST ALT Alkaline Phosphatase Total Protein Albumin Globulin Albumin/Globulin Ratio Stl C. diff Tox B Gene Negative Cdiff Gene Medications Administered Current Inpatient Medications Acetaminophen (Tylenol) 650 mg PO Q4H PRN PRN Reason: Moderate Pain Stop: 05/29/19 08:02 Amlodipine Besylate (Norvasc) 5 mg PO DAILY [facility] Stop: 05/29/19 08:59 Last Admin: 04/30/19 08:24 Dose: 5 mg Documented by: Piperacillin Sod/Tazobactam (Sod 3.375 gm/ Dextrose) 115 mls @ 28.75 mls/hr IV Q8H [facility] Stop: 05/10/19 11:37 Piperacillin Sod/Tazobactam (Sod 3.375 gm/ Dextrose) 115 mls @ 230 mls/hr IV 1300 ONE; Protocol Stop: 04/30/19 13:29 Miscellaneous (Remove Nicoderm Patch) 1 ea N/A DAILY@0859 [facility] Stop: 05/30/19 08:58 Last Admin: 04/30/19 08:24 Dose: 1 ea Documented by: Miscellaneous Information (Consult) 1 ea N/A UD PRN PRN Reason: Consult Stop: 05/30/19 11:37 Nicotine (Nicoderm Cq) 14 mg TD QAM PRN PRN Reason: smoking Stop: 05/29/19 09:40 Last Admin: 04/29/19 17:18 Dose: 14 mg Documented by: Ondansetron HCl (Zofran) 4 mg IV Q4H PRN PRN Reason: Nausea And Vomiting Stop: 05/29/19 08:02 PG Care Time/CCT Total # of Minutes Spent Total Time Spent with Patient: Total time spent is greater than 50% in coordination of care (as documented) at patient's floor/unit and/or counseling patient: Coding Level of Care Code 78594 Subseq Hosp Care Lvl 3 Diagnoses Acute GI bleeding K92.2 Acute blood loss anemia D62 HTN (hypertension) I10 Alcohol use Z72.89 Tobacco dependence F17.200 DVT prophylaxis Z29.9
[2019-04-30] MEDS ORDERED: LORazepam 0.5 MG TAB PO PRN (12:43)
[2019-04-30] MEDS ORDERED: PIPERACILLIN/TAZOBACTAM 3.375 GM in DEXTROSE 5% 100 ML IV ONE (13:00)
[2019-04-30] MEDS: PANTOprazole 40 MG TAB PO SCH ×2 (13:26→20:19)
[2019-04-30 18:18] LABS: Hematocrit (blood only) 37.4 % (42-52); Hemoglobin 11.8 g/dL (14.0-18.0)
[2019-04-30] MEDS: NICOTINE 14 MG/24 HR PATCH TD PRN (18:24)
[2019-04-30] MEDS: PIPERACILLIN/TAZOBACTAM 3.375 GM in DEXTROSE 5% 100 ML IV SCH (18:25)
[2019-04-30 23:44] VITALS: O2SAT 94
[2019-05-01] MEDS: PIPERACILLIN/TAZOBACTAM 3.375 GM in DEXTROSE 5% 100 ML IV SCH (01:45)
[2019-05-01 06:07] LABS: Hematocrit (blood only) 38.8 % (42-52); Hemoglobin 12.7 g/dL (14.0-18.0); Mean Corpuscular Hemoglobin 26.8 pg (25-34); Mean Corpuscular Hgb Conc 32.7 g/dL (32-36); Mean Corpuscular Volume 81.9 fL (80-100); Mean Platelet Volume 9.5 fL (7.4-10.4); Platelet Count 213 K/uL (130-400); RDW Coefficient of Variation 15.6 % (11.5-14.5); RDW Standard Deviation 47.2 fL (36.4-46.3); Red Blood Count 4.74 M/uL (4.7-6.1); White Blood Count 7.31 K/uL (4.8-10.8)
[2019-05-01 06:48] LABS: Albumin Globulin Ratio 0.7 (0.9-2); Albumin Level 3.2 gm/dl (3.4-5.0); BUN Creatinine Ratio 8.7 (10-20); Bilirubin,Total 0.9 mg/dl (0.2-1); Calcium 8.6 mg/dl (8.5-10.1); Creatinine Clr Calc Pharmacy 101.4 ml/min; Est GFR (Non-African American) 89.7; Globulin 4.4 gm/dl (2.5-4.0); Potassium 3.6 mmol/L (3.5-5.1); Total Protein 7.6 gm/dl (6.4-8.2)
[2019-05-01 07:27] VITALS: BP 124/74; TEMP 97.9
[2019-05-01] MEDS: PANTOprazole 40 MG TAB PO SCH (07:55)
[2019-05-01] MEDS: AMLODIPINE BESYLATE 5 MG TAB PO SCH (07:55)
--- NOTE | 2019-05-01 11:10 | Gastroenterology Progress Note ---
Date of Service May 01, 2019 Assessment & Plan (1) Rectal bleeding: Rectal bleeding likely from diverticular versus less likely ischemic changes. Possibly infectious clinically stable without signs of acute ongoing bleeding. Patient's eating without pain desires to go home, will do short interval outpatient colonoscopy at his request which I agree with. Admission and Anticipated Discharge Date Admission Date: April 29, 2019 Subjective Looks well today, without complaints of rectal bleeding Physical Exam Constitutional: WD/WN, vitals as above Cardiovascular: RRR, no murmur, no edema Gastrointestinal (Abdomen): normal bowel sounds, soft, nontender, no hepatosplenomegaly Results & Data ([facility]) Vital Signs (Past 12 Hours) Vital Signs Temp Pulse Resp BP Pulse Ox 05/01/19 07:25 36.6 C 53 L 16 124/74 94 04/30/19 23:43 36.5 C 64 18 123/77 94
[2019-05-01 11:33] VITALS: PULSE 64
--- NOTE | 2019-05-01 14:13 | Discharge Summary ---
Date of Service May 01, 2019 Admission HPI Per Admitting Provider This is a 64 yo M with PMhx of HTN and GI bleed who presents with recent onset of bloody bowel movements. Patient notes that last Thursday he developed an left upper quadrant abdominal pain at approximately midnight which then turned into a dull achy pain and eventually subsided on Thursday. After that he noticed bowel movements with small amount of blood on toilet paper. He felt that he was somewhat constipated on Thursday, strained during bowel movement, and then noticed more blood on toilet paper. He has had intermittent episodes of constipation in the past. After discussion with his PCP it was thought that he was having hemorrhoids. On he had a large bowel movement with bright red blood, with some in the toilet bowl and therefore called his PCP, he was referred to the ER, where he presented yesterday and was found that he had extensive diverticulosis on CT scan and was started on Augmentin as well as a stool softener for possible diverticulitis. The patient went home and then continue to have increased large bloody bowel movements, bright red, + clots, increased frequency of BMs, and therefore re-presented back to the ER early this morning. He has had multiple large bloody BMs since being here in the ER. He denies any lightheadedness or dizziness or further abdominal pain, no nausea or vomiting. He last took his amlodipine at 6-7pm last night, but has not taken any other of his medications. Other past medical history includes chronic tobacco use, smokes 1/2-1 PPD x 40+ years, patient also admits to drinking alcohol 2-3 times per week, 10 beers and "a few shots". He denies heavy use of NSAIDs but has used ibuprofen routinely for back pain in the past; last time he took ibuprofen was 400 mg about 10 days ago. Principal Diagnosis Lower GI bleed Discharge Exam Constitutional WD/WN, vitals as above Eyes PERRL, conjunctivae normal, anicteric sclerae ENMT external ear and nose normal, oropharynx normal Neck trachea midline, no thyromegaly Respiratory normal respiratory effort, lungs clear to auscultation Cardiovascular RRR, no murmur, no edema Gastrointestinal (Abdomen) Inspection/Auscultation: abdomen normal to inspection and normal bowel sounds; abdomen not distended Percussion/Palpation: abdomen soft; abdomen nontender, no guarding and abdomen not rigid Musculoskeletal no cyanosis or clubbing, extremities motor strength 5/5 Skin no rashes, warm and dry Neurologic patellar DTR's 2+ bilat, sensation intact and PERRL, EOMI, accommodation nl, no face palsy, no dysarthria Psychiatric A+Ox3, euthymic affect Lymphatic no cervical or axillary lymphadenopathy Discharge Data Allergies Allergy/AdvReac Type Severity Reaction Status Date / Time No Known Allergies Allergy Unverified 04/29/19 05:49 Consultations 04/29/19 08:04 Consult Case Management - Discharge Planning Routine 04/29/19 09:41 Consult Gastroenterology Routine Hospital Course (1) Acute GI bleeding: no further GI bleeding, had two brown BM no pain associated with them Hb trending up, > 12 favoring a lower GI bleed given the findings on CT below treated with Zosyn IV for possible infectious source C diff negative, stool cultures negative at this point d/w Dr. Jarvis, no emergent need for endoscopy, can follow up in a few weeks d/c to home - CT ABD reviewed from 04/28/2019 showing extensive colonic diverticulosis without definitive evidence of acute diverticulitis. Mild wall thickening within the proximal to mid sigmoid colon without significant pericolonic inflammation may represent chronic hypertrophy of the muscularis propria secondary to diverticular disease A focal area of mild luminal narrowing of the proximal sigmoid which may be secondary to partial distention. Correlation with a nonemergent colonoscopy however is recommended to exclude an underlying mucosal lesion. Moderate fecal retention with multiple stool-filled loops of ileum suggestive of decreased small bowel transit. No bowel obstruction, pneumatosis or pneumoperitoneum. (2) Acute blood loss anemia: Hb up, > 12 today, no further bleeding BP stable, no indications for transfusion (3) HTN (hypertension): - Continue amlodipine - Hold ASA in setting of GI bleed (4) Alcohol use: -Patient admits to heavy alcohol consumption 2-3 times per week, 10 beers and a few shots of liquor at least twice per week, as well as drinking beers while doing activities like yard work -Cessation was encouraged -Last drink was on Thursday, no signs of withdrawal, patient denies any feelings of sweats, chills, shakes. (5) Tobacco dependence: -Smokes 1/2-1 PPD routinely, cessation was encouraged to bedside -Nicotine patch ordered as needed (6) DVT prophylaxis: -Teds, no chemical DVT in the setting of GI bleed CODE STATUS full code Disposition: d/c home Total Time Total Time Spent Total Time Spent (In Minutes): 32 minutes Total Time Includes: Examination of the Patient, Discharge Planning, Medication Reconciliation and Communication With Other Providers (Dr. Jarvis) Discharge Plan Discharge Items Patient Disposition: Home - Self-Care Reason For Visit: GIB Discharge Diagnosis: Lower GI bleed possible colitis vs diverticular bleed Condition on Discharge: Good Goals: stay well hydrated and well nourished monitor for further bleeding advance diet as tolerated follow up with Dr. Jarvis in a few weeks for outpatient colonoscopy Activity: Resume your previous activity Non-emergency contact: Primary Care Provider and Day Care Assistant Call non-emergency contact if: you have any medication questions and your symptoms worsen Follow-up/Referrals: Dalton Sharif MD [Primary Care Provider] - (no need for PCP follow up at this time) Rupert Jarvis [Physician] - (2-4 weeks for colonoscopy) Diet: Low Fiber Addtl Attending Provider Instructions: Medications: - AUGMENTIN: continue taking for three more days per gastroenterology Lower GI bleed, possible colitis vs diverticular disease C diff testing negative, stool cultures negative hemoglobin (blood count) is stable, starting to trend back up, vitals stable advance diet as tolerated, maintain low fiber for the next two weeks bleeding has resolved, may see some streaks of dark blood from time to time if you see more significant bleeding again please call Dr. Jarvis's office number for further instruction plan to follow up with Dr. Jarvis in a few weeks for colonoscopy, his office will contact you to arrange if you do not hear from them this week then call [phone] Pending Studies at Discharge: No Stand-Alone Forms: My [facility], Smoking Cessation Medications and DC Order Prescriptions: Continued multivitamin Tablet 1 tab PO DAILY RF: 0 amlodipine [Norvasc] 5 mg tablet 5 mg PO DAILY RF: 0 aspirin [Aspir-81] 81 mg Tablet,Delayed Release (Dr/Ec) 81 mg PO DAILY RF: 0 garlic Tablet 1 tab PO DAILY RF: 0 cholecalciferol (vitamin D3) [Vitamin D3] 125 mcg (5,000 unit) Tablet 5,000 unit PO DAILY RF: 0 Iyqynemqsst-Gczbc-QUR Complex 534-282-21-0.5 mg Tablet 1 tab PO BID RF: 0 [place]-3 350 mg-235 mg- 90 mg-597 mg Capsule,Delayed Release(Dr/Ec) 1 cap PO DAILY RF: 0 amoxicillin-pot clavulanate [Augmentin] 875-125 mg tablet 1 tab PO BID Qty: 20 RF: 0 Cholestoff Med 2 tabs PO DIRECTED RF: 0 Discharge Orders: Discharge Order (Routine); Ordered 05/01/19 Ordered By: Angel Santana Admission Data Admit Date/Time: 04/29/19 08:04 Attending Provider: Angel Santana Admit Provider: Angel Santana Primary Care Provider: Dalton Sharif Other Providers: Marino Jessica Other Interventions: Discharge Summary Assessment (RN) Last Done: 05/01/19 11:31 DC Date/Time DO NOT enter until pt leaves facility: 05/01/19 11:55 Coding Level of Care Code D/C Day Management >30 mins Diagnoses Acute GI bleeding K92.2 Acute blood loss anemia D62 HTN (hypertension) I10 Alcohol use Z72.89 Tobacco dependence F17.200 DVT prophylaxis Z29.9
== END 2019-05-01 11:55 | disposition home or self-care (01) | DRG 378 ==
LOC: ED 05:25 → 2W 08:04